=== PATIENT | female | born 1935 | race Caucasian/White ===

== ENCOUNTER 2016-11-16 13:13 | Emergency (ER) | payer MEDICARE, BC ==
[2016-11-16 14:48] VITALS: BP 139/57
--- NOTE | 2016-11-16 15:42 | UC ---
Complaint Female HPI - HPI Summary HPI Summary: Patient has a long urological history, see the triage, she is having new onset dysuria, did take AZO for discomfort. no fever or flank pain. hx of urinary incontinence and botox injections of the bladder. - History Of Current Complaint Chief Complaint: UCGU Stated Complaint: URINARY Time Seen by Provider: 11/16/16 14:30 Hx Obtained From: Patient Hx Last Menstrual Period: n/a ?: No Onset/Duration: Sudden Onset, Lasting Days Timing: Lasting Days Severity Initially: Moderate Severity Currently: Moderate Character: Burning Aggravating Factor(s): Urination Alleviating Factor(s): Position - Allergies/Home Medications Allergies/Adverse Reactions: Allergies Allergy/AdvReac Type Severity Reaction Status Date / Time Metronidazole [From Flagyl] Allergy Severe Vomiting Verified 11/07/14 11:53 Azithromycin [From Zithromax] Allergy Unknown Verified 11/07/14 11:53 Reaction Details Ciprofloxacin [From Cipro] Allergy Unknown Verified 11/07/14 11:53 Reaction Details Nalbuphine [From Nubain] Allergy Unknown Verified 11/07/14 11:53 Reaction Details Penicillins Allergy Unknown Verified 11/07/14 11:53 Reaction Details Senna Allergy Nausea Verified 11/07/14 11:53 Sulfa Antibiotics Allergy Unknown Verified 11/07/14 11:53 Reaction Details coconut Allergy Nausea Uncoded 11/07/14 11:53 immunoglobulin Allergy Swelling Uncoded 11/07/14 11:53 opioids AdvReac See Comment Uncoded 11/16/16 14:50 Home Medications: Home Medications Acetaminophen [Non-Aspirin Extra Strengt] 1,000 mg PO DAILY PRN 11/16/16 [ History Confirmed 11/16/16] Albuterol HFA INHALER* [Ventolin HFA Inhaler*] 2 puff INH TID 11/16/16 [History Confirmed 11/16/16] Cyclobenzaprine TAB* [Flexeril 10 MG TAB*] 10 mg PO BID PRN 11/16/16 [History Confirmed 11/16/16] Famotidine TAB* [Pepcid 20 MG TAB*] 40 mg PO DAILY 11/16/16 [History Confirmed 11/16/16] Lidoderm Patch 1 unit TOPICAL SEE INSTRUCTIONS 11/16/16 [History] PMH/Surg Hx/FS Hx/Imm Hx Previously Healthy: Yes - Surgical History Surgical History: Yes Surgery Procedure, Year, and Place: HYSTERECTOMY 12/31, CATARACTS, CYST REMOVED FROM BILATERAL WRISTS; 10/06/14 left knee replacement at [facility], [place] - Family History Known Family History: Positive: Hypertension, Diabetes - Social History Alcohol Use: None Substance Use Type: None Smoking Status (MU): Former Smoker Type: Cigarettes Amount Used/How Often: 1/2 PACK Length of Time of Smoking/Using Tobacco: 61 YEARS Have You Smoked in the Last Year: No When Did the Patient Quit Smoking/Using Tobacco: 2011 - Immunization History Most Recent Influenza Vaccination: 2013 Most Recent Tetanus Shot: no Most Recent Pneumonia Vaccination: 2014 Review of Systems Constitutional: Negative Skin: Negative Eyes: Negative ENT: Negative Respiratory: Negative Cardiovascular: Negative Gastrointestinal: Negative Genitourinary: Dysuria Motor: Negative Neurovascular: Negative Musculoskeletal: Negative Neurological: Negative Psychological: Negative All Other Systems Reviewed And Are Negative: Yes Physical Exam Triage Information Reviewed: Yes Appearance: Well-Nourished, Ill-Appearing, Pain Distress Vital Signs: Initial Vital Signs Temp 99.5 F 11/16/16 14:33 Pulse 66 11/16/16 14:33 Resp 18 11/16/16 14:33 BP 139/57 11/16/16 14:33 Vital Signs Reviewed: Yes Eye Exam: Normal ENT Exam: Normal ENT: Positive: Hearing grossly normal, Pharynx normal, TMs normal Dental Exam: Normal Neck exam: Normal Neck: Positive: Supple, Nontender, No Lymphadenopathy Respiratory Exam: Normal Respiratory: Positive: Chest non-tender, Lungs clear, Normal breath sounds Cardiovascular Exam: Normal Cardiovascular: Positive: RRR, No Murmur, Pulses Normal Abdominal Exam: Normal Abdomen Description: Positive: Nontender, No Organomegaly, Soft, CVA Tenderness (R) - neg, CVA Tenderness (L) - neg Bowel Sounds: Positive: Present Musculoskeletal Exam: Normal Musculoskeletal: Positive: Other: - walkes with a cane Neurological Exam: Normal Psychological Exam: Normal Skin Exam: Normal Complaint Female Dx - Course Course Of Treatment: hx obtained, exam performed ,meds reviewed, Urine culture sent, treated for dysuria - Differential Dx/Diagnosis Differential Diagnosis/HQI/PQRI: Urinary Tract Infection Provider Diagnoses: dysuria. urinary incontinence Discharge - Discharge Plan Condition: Stable Disposition: HOME Prescriptions: Cephalexin CAP* [Keflex CAP*] 500 mg PO BID #14 cap Patient Education Materials: Dysuria (ED) Referrals: Christian Figueredo MD [Primary Care Provider] - Additional Instructions: 1. take the medication as prescribed. 2. Urine culture was sent, results will be available in the next 24-48 hours.
== END 2016-11-16 15:45 | disposition home or self-care (01) ==
LOC: UCCORT 13:13
DX: R30.0 Dysuria (principal); R32 Unspecified urinary incontinence; Z90.710 Acquired absence of both cervix and uterus; Z98.49 Cataract extraction status, unspecified eye; Z96.652 Presence of left artificial knee joint; Z88.1 Allergy status to other antibiotic agents; Z88.0 Allergy status to penicillin; Z88.2 Allergy status to sulfonamides; Z87.891 Personal history of nicotine dependence
CPT/HCPCS: 87086; 99212; G0463

== ENCOUNTER 2017-02-21 12:02 | Emergency (ER) | payer MEDICARE, BC ==
[2017-02-21 13:29] VITALS: BP 139/69
== END 2017-02-21 13:32 | disposition left against medical advice (07) ==
LOC: UCCORT 12:02
DX: N39.9 Disorder of urinary system, unspecified (principal); Z53.21 Procedure and treatment not carried out due to patient leaving prior to being seen by health care provider

== ENCOUNTER 2017-10-03 15:15 | Emergency (ER) | payer MEDICARE, BC ==
[2017-10-03 16:37] VITALS: BP 160/106
--- NOTE | 2017-10-03 17:00 | UC ---
Complaint Female HPI - HPI Summary HPI Summary: Pt c/o sudden onset of urinary incontinence X 2 days. Pt states she has frequent UTI's and this is the symptom that she has with UTI's. Pt has been taking OTC AZO - History Of Current Complaint Chief Complaint: UCGU Stated Complaint: URINARY Time Seen by Provider: 10/03/17 16:42 Hx Obtained From: Patient Hx Last Menstrual Period: none ?: No Onset/Duration: Sudden Onset, Lasting Days, Still Present Timing: Intermittent Severity Initially: Mild Severity Currently: None Pain Intensity: 2 Character: Not Applicable Aggravating Factor(s): Urination Associated Signs And Symptoms: Positive: Negative - Risk Factors Ectopic Risk Factor: Negative Ovarian Torsion Risk Factor: Negative - Allergies/Home Medications Allergies/Adverse Reactions: Allergies Allergy/AdvReac Type Severity Reaction Status Date / Time MS Metronidazole Allergy Severe Vomiting Verified 02/21/17 13:26 [From Flagyl] MS Azithromycin Allergy Unknown Verified 02/21/17 13:26 [From Zithromax] Reaction Details MS Ciprofloxacin [From Cipro] Allergy Unknown Verified 02/21/17 13:26 Reaction Details MS Nalbuphine [From Nubain] Allergy Unknown Verified 02/21/17 13:26 Reaction Details MS Penicillins [Penicillins] Allergy Unknown Verified 02/21/17 13:26 Reaction Details MS Senna [Senna] Allergy Nausea Verified 02/21/17 13:26 MS Sulfa Antibiotics Allergy Unknown Verified 02/21/17 13:26 [Sulfa Antibiotics] Reaction Details coconut Allergy Nausea Uncoded 02/21/17 13:26 immunoglobulin Allergy Swelling Uncoded 02/21/17 13:26 Home Medications: Home Medications Medical Cannabis 2 tab PO SEE INSTRUCTIONS 10/03/17 [History] Phenazopyridine TAB* [Pyridium 100 mg TAB*] 100 mg PO TID PRN 10/03/17 [History Confirmed 10/03/17] Potassium Gluconate [Potassium] 600 mg PO QPM 10/03/17 [History Confirmed ] Vit C/E/Zn/Coppr/Lutein/Zeaxan [Preservision Areds 2 Softgel] 1 each PO BID [History Confirmed 10/03/17] PMH/Surg Hx/FS Hx/Imm Hx Endocrine History: Dyslipidemia Cardiovascular History: Cardiac Disease, Hypertension Psychological History: Depression - Surgical History Surgical History: Yes Surgery Procedure, Year, and Place: HYSTERECTOMY 12/31, CATARACTS, CYST REMOVED FROM BILATERAL WRISTS; 10/06/14 left knee replacement at [facility], [place] - Family History Known Family History: Positive: Hypertension, Diabetes - Social History Occupation: Retired Lives: With Family Alcohol Use: None Substance Use Type: None Smoking Status (MU): Former Smoker Type: Cigarettes Amount Used/How Often: 1/2 PACK Length of Time of Smoking/Using Tobacco: < 1PPD x 61 Years Have You Smoked in the Last Year: No When Did the Patient Quit Smoking/Using Tobacco: 2011 - Immunization History Most Recent Influenza Vaccination: November 2016 Most Recent Tetanus Shot: no Most Recent Pneumonia Vaccination: 2014 Review of Systems Constitutional: Negative Skin: Negative Eyes: Negative ENT: Negative Respiratory: Negative Cardiovascular: Negative Gastrointestinal: Negative Genitourinary: Other - urinary incontinence Motor: Negative Neurovascular: Negative Musculoskeletal: Negative Neurological: Negative Psychological: Negative Is Patient Immunocompromised?: No All Other Systems Reviewed And Are Negative: Yes Physical Exam Triage Information Reviewed: Yes Appearance: Well-Appearing Vital Signs: Initial Vital Signs Temp 97.4 F 10/03/17 16:28 Pulse 72 10/03/17 16:28 Resp 18 10/03/17 16:28 BP 160/106 10/03/17 16:28 Pulse Ox 95 10/03/17 16:28 Vital Signs Reviewed: Yes Eye Exam: Normal ENT Exam: Normal Dental Exam: Normal Neck exam: Normal Respiratory Exam: Normal Cardiovascular Exam: Normal Abdominal Exam: Normal Abdomen Description: Positive: Nontender Musculoskeletal Exam: Normal Neurological Exam: Normal Psychological Exam: Normal Skin Exam: Normal Complaint Female Dx - Differential Dx/Diagnosis Differential Diagnosis/HQI/PQRI: Urinary Tract Infection Provider Diagnoses: urinary incontinence Discharge - Sign-Out/Discharge Documenting (check all that apply): Patient Departure - Discharge Plan Condition: Stable Disposition: HOME Prescriptions: Cephalexin CAP* [Keflex 500 CAP*] 500 mg PO Q12H #14 cap Patient Education Materials: Dysuria (ED) Referrals: Christian Figueredo MD [Primary Care Provider] - If Needed - Billing Disposition and Condition Condition: STABLE Disposition: Home
== END 2017-10-03 17:20 | disposition home or self-care (01) ==
LOC: UCCORT 15:15
DX: R32 Unspecified urinary incontinence (principal); I10 Essential (primary) hypertension; F17.210 Nicotine dependence, cigarettes, uncomplicated; Z88.8 Allergy status to other drugs, medicaments and biological substances; Z88.1 Allergy status to other antibiotic agents; Z88.0 Allergy status to penicillin; Z88.2 Allergy status to sulfonamides; Z88.7 Allergy status to serum and vaccine; Z91.018 Allergy to other foods
CPT/HCPCS: 87077; 87086; 87186; 99212; G0463